=== PATIENT | male | born 1975 | race Caucasian/White ===

== ENCOUNTER 2016-07-22 21:23 | Emergency (ER) | payer SELFPAY ==
[~2016-07-22] VITALS: Ht 175.3 cm; Wt 80.3 kg
[2016-07-22 21:45] VITALS: BP 116/70
--- NOTE | 2016-07-23 00:06 | NUR ---
PT TAKEN TO OF2
--- NOTE | 2016-07-23 00:10 | NUR ---
CAME IN FOR MEDICATION REFILL.
--- NOTE | 2016-07-23 00:23 | NUR ---
Dr. Ellis evaluating patient
[2016-07-23] MEDS ORDERED: cefTRIAXone 1,000 MG in LIDOCAINE 1% ED 2.1 ML IM ONE (00:30)
--- NOTE | 2016-07-23 00:45 | NUR ---
PT TAKEN TO BED 7
[2016-07-23 01:08] VITALS: BP 116/70
--- NOTE | 2016-07-23 01:08 | NUR ---
Patient discharged with v/s stable. Written and verbal after care instructions given and explained BY DR. SETHI. Patient alert, oriented and verbalized understanding of instructions. Ambulatory with steady gait. All questions addressed prior to discharge. ID band removed. Patient advised to follow up with PMD. Rx of DOXYCYCLINE given. Patient educated on indication of medication including possible reaction and side effects. Opportunity to ask questions provided and answered.
== END 2016-07-23 01:08 | disposition home or self-care (01) ==
LOC: MED 21:23
DX: A64 Unspecified sexually transmitted disease (principal)
CPT/HCPCS: 36415; 87491; 96372; 99283; J0696; J2001